=== PATIENT | male | born 1940 | race Caucasian/White ===

== ENCOUNTER → 2017-01-27 | Outpatient (CLI) | payer OTHER ==
[~2017-01-27] VITALS: Ht 167.6 cm; Wt 122.9 kg
[~2017-01-27] MED LIST: ALLOPURINOL 10100 M3 PO; ARANESP60 MCG/1 M IJ; ASPIR 8181 MG PO; BENTYL 10 MG CA10 M1 PO; CERTAVITE SR-A1 EACH PO; HEPARIN SO5000 UNIT2 SUBQ; LACTULOSE10 GM/153 PO; LIPITOR 20 MG T20 M1 PO; NEURONTIN300 MG PO; PREDNISONE 5 MG5 M1 PO
[2017-01-27 07:40] VITALS: BP 122/60
[2017-01-27 07:41] LABS: HEMATOCRIT 41.3 % (42.0-52.0); MCH 30.5 pg (26.0-34.0); MCHC 31.4 g/dL (28.0-37.0); MCV 97.3 fL (80.0-100.0); RBC 4.25 mil/uL (4.50-6.00); RDW 16.7 % (10.5-14.5); WBC 6.8 thou/uL (4.0-11.0)
[2017-01-27 07:56] LABS: APTT 22.2 Seconds (24.5-32.8); PROTIME 10.1 Seconds (9.3-11.4)
== END ==
LOC: SPEC 06:33
PROVIDERS: Radiology Diagnostic Radiology
DX: I12.0 Hypertensive chronic kidney disease with stage 5 chronic kidney disease or end stage renal disease (principal); N18.6 End stage renal disease; Z99.2 Dependence on renal dialysis; I48.91 Unspecified atrial fibrillation; D64.9 Anemia, unspecified; J44.9 Chronic obstructive pulmonary disease, unspecified; K21.9 Gastro-esophageal reflux disease without esophagitis; G47.30 Sleep apnea, unspecified; E11.22 Type 2 diabetes mellitus with diabetic chronic kidney disease

== ENCOUNTER 2017-03-09 16:51 | Inpatient (IN) | payer OTHER ==
[2017-03-09] VITALS (9 sets, daily range): BP systolic 67–102; BP diastolic 25–90
[~2017-03-09] VITALS: Ht 167.6 cm; Wt 115.4 kg
--- NOTE | ~2017-03-09 | HC ---
[facility] [place] [address] [place] [address] CONSULTATION Name: JEFFERY HERNANDEZ Room #: 246-P [facility] IN [facility]#: [id number] Admission: 03/09/17 Attend Phys: Junior Gusman MD Discharge: Date of : 39 Report #: [id number] THIS REPORT FOR: //name// CC: Dre Cannon HISTORY OF PRESENT ILLNESS: The patient is a 76-year-old white male who was brought to the Emergency Room with progressive dyspnea. He has been admitted for pneumonia. A pulmonary consultation was requested. The patient has multiple medical problems including end-stage renal disease undergoing hemodialysis. In 2008, he has had a renal transplantation, which subsequently failed. 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 The patient is a very poor historian. Not able to obtain much history. He does not know why he is here. According to the ER notes, EMS was summoned to the dialysis center yesterday with patient's complaint of dyspnea, hypoxia with a saturation of 86% on 3 liters of O2. Chest x-ray on admission revealed left sided effusion, small lung with mild infiltrates. PAST MEDICAL HISTORY: Is remarkable for end-stage renal disease, status post renal transplantation in 2008, it has failed, now back on hemodialysis, his AV fistula apparently has clotted off on both upper extremities, permanent atrial fibrillation, anemia, COPD, history of sleep apnea, gastroesophageal reflux disease. He has chronic hypoxic respiratory failure on 3 liters of O2 at baseline. PAST SURGICAL HISTORY: As mentioned above. ALLERGIES: ACETAMINOPHEN, DIAZEPAM, PENICILLIN, IODINE, PROPOXYPHENE, reactions unspecified. MEDICATIONS: List reviewed from [facility]. He is on DuoNebs q.i.d. FAMILY HISTORY: Noncontributory. SOCIAL HISTORY: The patient has smoked, but quit in the recent past. He resides at a penitentiary currently. REVIEW OF SYSTEMS: As mentioned above, otherwise 10-point system review negative. PHYSICAL EXAMINATION: GENERAL: He is awake, alert, in no apparent distress. VITAL SIGNS: Temperature is 98 degrees Fahrenheit, pulse is 85, respiratory [facility] [address] [place] [address] CONSULTATION Name: JEFFERY HERNANDEZ Room #: 246-P [facility] IN [facility]#: [id number] Admission: 03/09/17 Attend Phys: Junior Gusman MD Discharge: Date of : 39 Report #: [id number] rate is 22, blood pressure has been variable, perhaps not accurate. Systolic blood pressure has been ____ 86 ____ 66 mmHg systolic, saturation 100%. HEENT: Normocephalic, atraumatic. NECK: Supple, without lymphadenopathy or thyromegaly. CHEST: Breath sounds are decreased due to poor effort. Few scattered crackles. No wheezes. CARDIOVASCULAR: Heart sounds are distant. No obvious murmurs or gallop. Pulses are 2+/4+ bilaterally. ABDOMEN: Obese, soft, nontender, no organomegaly or masses felt. GENITOURINARY: Deferred. RECTAL: Deferred. EXTREMITIES: No cyanosis, clubbing or edema. LABORATORY DATA: Chest x-ray shows small lung volumes, small left-sided pleural effusion, possible infiltrates and atelectasis. Sodium 134, potassium 3.8, chloride 101, CO2 is 24, BUN is 6, creatinine is 2.1. WBC 4900, hemoglobin is 10.8. No significant bandemia. Troponin 0.21. INR is 3.0. IMPRESSION: 1. Dyspnea and hypoxia in this 76-year-old -Prydeinig male with multiple medical problems including end-stage renal disease. Chest x-ray shows possible left-sided infiltrates. I think it is reasonable to presume the patient may have pneumonia overall. Possible aspiration and pneumonia is considered. 2. Chronic obstructive pulmonary disease, severity unknown with mild exacerbation. 3. Acute on chronic hypoxic respiratory failure. 4. End-stage renal disease with prior renal transplant, which has failed, now on hemodialysis, 2 clotted AV fistulas on both upper extremities. He has a temporary dialysis catheter in his left femoral groin. 5. Hypotension. Despite a borderline hypotension, clinically is asymptomatic. We will defer to renal service to manage his hemodynamics as patient may have chronically low blood pressure. 6. Permanent atrial fibrillation on chronic anticoagulation. 7. Decubitus ulcer nonhealing. 8. Elevated troponin, probably related to myocardial stress demand due to sepsis. RECOMMENDATION: Agree with broad spectrum antibiotics to cover for possible aspiration pneumonia. Given the patient resides at a facility, we should consider nosocomial infectious processes. Therefore, agree with vancomycin, we will switch to Zosyn instead of Levaquin. We will continue bronchodilators for now. He does not have any obvious wheezing, we will hold off on corticosteroids. We will defer fluid management to renal service. I will also defer hemodynamic variability to renal service. The patient is overall stable from pulmonary critical care standpoint. We will [facility] [address] [place] [address] CONSULTATION Name: JEFFERY HERNANDEZ Room #: 246-P ADM IN M.R.#: [id number] Admission: 03/09/17 Attend Phys: Junior Gusman MD Discharge: Date of : 39 Report #: [id number] transfer to telemetry if okay will all consultants. Thank you for this consultation. <ELECTRONICALLY SIGNED> By: Faisal Cruz MD 03/15/17 1125 [id number] [id number] Faisal Cruz MD /nt
--- NOTE | ~2017-03-09 | HC ---
[facility] [place] [address] [place] [address] CONSULTATION Name: JEFFERY HERNANDEZ Room #: 246-P [facility] IN ..#: [id number] Admission: 03/09/17 Attend Phys: Junior Gusman MD Discharge: Date of : 39 Report #: [id number] THIS REPORT FOR: //name// CC: Dre Cannon REASON FOR CONSULTATION: End-stage renal disease. HISTORY OF PRESENT ILLNESS: This 76-year-old gentleman is seen in intensive care unit. He is a very poor historian and history is currently available. The patient apparently has longstanding end-stage renal disease, headache, renal transplant in 2008, which he had for some period of time and has not been back on dialysis. He has had sacral wound. He had septic episode, has not been able to walk for year according to him, have been dialyzing again in [place], has had hypotension, on midodrine and developed shortness of breath at dialysis today. He was eventually brought to the Emergency Room, where he was found to be somewhat hypotensive. Chest x-ray did not show congestive heart failure. He has been given fluid. Cultures were obtained. He has been given antibiotics. He is seen in ICU. PAST MEDICAL HISTORY: He has diabetes, end-stage renal disease, history of prior hypertension, now hypotension, the atrial fibrillation as mentioned, he has been on prednisone for sometime and he really cannot tell me why. HOME MEDICATIONS: Listed as prednisone 7.5 mg daily, insulin, midodrine 10 mg t.i.d. He had be on ampicillin recently, allopurinol 100 mg, lactulose. He is getting EPO after dialysis and a . He also has some past history of MRSA. REVIEW OF SYSTEMS: GENERAL: He has not been well. He has not been walking, has been weak, has been eating some. EYES: His vision is okay. ENT: Hearing okay. Swallowing okay. Denies mouth ulcers. ENDOCRINE: Positive for the diabetes. RESPIRATORY: He has been feeling somewhat short winded and apparently had some hypoxemia earlier. CARDIAC: Denies chest pain, angina or myocardial infarction, has had the atrial fibrillation. GASTROINTESTINAL: Apparently still eating. GENITOURINARY: Does not make enough urine. SKELETAL: He has had swelling in his legs for sometime and a wound on his buttocks. ALLERGIES: REPORTEDLY TO DIAZEPAM, PENICILLIN, PROPOXYPHENE. ADDENDUM: He also has a diagnosis listed as sleep apnea. [facility] [address] [place] [address] CONSULTATION Name: JEFFERY HERNANDEZ Room #: 246-P [facility]#: [id number] Admission: 03/09/17 Attend Phys: Junior Gusman MD Discharge: Date of : 39 Report #: [id number] SOCIAL HISTORY: Denies cigarettes or alcohol or drugs. FAMILY HISTORY: Noncontributory. PHYSICAL EXAMINATION: GENERAL: This is a relatively comfortable appearing patient seen in ICU. SKIN: He has several excoriations and buttock wounds. SKELETAL: He is very obese. HEENT: Extraocular movements are full. Vision intact. No scleral icterus. Hearing intact. Mucous membranes moist. NECK: Supple. CHEST: Shows diminished breath sounds at the bases. HEART: Slightly irregular. ABDOMEN: Soft and nontender. EXTREMITIES: There is a tunneled dialysis catheter in left groin and the patient is rather obese legs have chronic 3+ edema. LABORATORY DATA: Sodium 132, potassium 5, chloride 100, bicarbonate , BUN 5, creatinine only 1.7, lactic acid 2.9 and troponin I 0.23. ASSESSMENT AND PLAN: 1. End-stage renal disease, apparently a failed transplant, has been on steroids. He is hypotensive. We will cover him for stress dose steroids in the meantime. We will give him IV fluids for his blood pressure. 2. End-stage renal disease, dialysis dependent. 3. Possible sepsis, antibiotics and cultures appropriate. 4. Possible steroid dependent, we will covered with IV steroids. 5. Diabetes mellitus. 6. Buttocks wound. 7. Paraparesis by history, lower extremity swelling. <ELECTRONICALLY SIGNED> By: Sidney Sullivan MD 03/14/17 1048 [id number] 0623 Sidney Sullivan MD /nt
--- NOTE | ~2017-03-09 | EKG ---
[address] [address] ELECTROCARDIOGRAM REPORT Name: MAURA HERNANDEZCHARLIE Patino Room #: 246-P [facility] IN M.R.#: [id number] Admission: 03/09/17 Attend Phys: Junior Gusman MD Discharge: Date of : 39 Report #: [id number] THIS REPORT FOR: //name// [facility] ED Test Date: 2017-03-09 Test Time: 17:06:50 Pat Name: JEFFERY HERNANDEZ Department: Room: 246 Gender: M Bank Teller: Zayda DAS : 1940 Requested By: Gregorio Nichole Order Number: [id number] MD: Ladarius Martell Measurements Intervals [place] Rate: 94 P: 11 ID: [id number] QRS: 55 QRSD: 98 T: QT: 341 QTc: 427 Interpretive Statements Atrial fibrillation vs atrial tachycardia Low voltage, precordial leads Abnormal R-wave progression, early transition Nonspecific T abnormalities, diffuse leads Compared to ECG 07/12/1995 09:01:00 Low QRS voltage now present Sinus rhythm no longer present Sinus arrhythmia no longer present Poor R-wave progression no longer present T-wave abnormality still present Electronically Signed On 03-14-2017 8:07:20 CDT by Ladarius Martell [email or web address] <ELECTRONICALLY SIGNED> By: Ladarius Martell MD 03/14/17 0807 05 05 Ladarius Martell MD /EPI
--- NOTE | ~2017-03-09 | 2DMMODE ---
[facility] [place] [address] 2 D/M-MODE ECHOCARDIOGRAM Name: DAVIDJEFFERY G Room #: 246-P [facility] IN .R.#: [id number] Admission: 03/09/17 Attend Phys: Ham Cardoza Discharge: Date of : 38 Date of Service: 03/10/17 1207 Report #: [id number] THIS REPORT FOR: //name// APPROVED REPORT Study performed: 03/10/2017 08:40:05 EXAM: Comprehensive 2D, Doppler, and color-flow Echocardiogram Patient Location: ICU Room #: 246 Blood Pressure: 78/64 mmHg HR: 88 bpm Other Information Study Quality: Fair Indications COPD Diabetes Dyspnea 2D Dimensions RVDd: 50.73 mm LVEF(%): 62.11 (>50%) IVSd: 16.18 (7-11mm) LVOT Diam: 21.93 (18-24mm) LVDd: 36.75 mm PWd: 13.52 (7-11mm) Ascending Ao: 29.97 (22-36mm) LVDs: 24.71 (25-40mm) Aortic Root: 35.73 mm IVC: 28.00 mm Lopez's LVEF: 62.11 % Volumes Left Atrial Volume (Systole) Single Plane 4CH: 36.54 mL Aortic Valve AoV Peak Jesus.: 1.83 m/s AO Peak Gr.: 13.36 mmHg LVOT Max P.25 mmHg LVOT Max V: 0.90 m/s MOE Vmax: 1.86 cm2 Mitral Valve E/A Ratio: 0.9 [facility] [address] [place] [address] 2 D/M-MODE ECHOCARDIOGRAM Name: JEFFERY HERNANDEZ Room #: 246-P [facility] IN ..#: [id number] Admission: 03/09/17 Attend Phys: Ham Cardoza Discharge: Date of : 38 Date of Service: 03/10/17 1207 Report #: [id number] MV Decel. Time: 207.88 ms MV E Max Jesus.: 0.67 m/s MV A Jesus.: 0.73 m/s MV PHT: 60.29 ms IVRT: 106.11 ms Pulmonary Valve PV Peak Jesus.: 0.83 m/s PV Peak Gr.: 2.74 mmHg Pulmonary Vein P Vein S: 45.4 m/s P Vein A: 22.91 m/s P Vein D: 25.7 m/s P Vein A Dur.: 87.7 msec Tricuspid Valve TR Peak Jesus.: 4.29 m/s RAP Estimate: 15.00 mmHg TR Peak Gr.: 73.76 mmHg Left Ventricle The left ventricle is normal size. Mild concentric left ventricular hypertrophy. The left ventricular systolic function is normal. The left ventricular ejection fraction is within the normal range. LVEF is 60%. Grade I - abnormal relaxation pattern. Right Ventricle Right ventricle is dilated. Right ventricle is hypokinetic. Atria The left atrium size is normal. Right atrium is dilated. Aortic Valve The aortic valve is normal in structure. No aortic regurgitation is present. There is no aortic valvular stenosis. Mitral Valve The mitral valve is normal in structure. There is no mitral valve regurgitation noted. No evidence of mitral valve stenosis. Tricuspid Valve The tricuspid valve is normal in structure. There is moderate tricuspid regurgitation. The right atrial pressure is estimated at 15 mmHg. There is severe pulmonary hypertension. Estimated PAP was 89 mmHg. Pulmonic Valve The pulmonary valve is normal in structure. There is no pulmonic [place] [id number] 2 D/M-MODE ECHOCARDIOGRAM Name: HERNANDEZJEFFERY Room #: 246-P [facility] IN ..#: [id number] Admission: 03/09/17 Attend Phys: Ham Cardoza Discharge: Date of : 38 Date of Service: 03/10/17 1207 Report #: [id number] valvular regurgitation. Great Vessels The aortic root is normal in size. The inferior vena cava is dilated with no inspiratory collapse. Pericardium There is no pericardial effusion. <Conclusion> The left ventricle is normal size. Mild concentric left ventricular hypertrophy. LVEF is 60%. Right ventricle is dilated. Right ventricle is hypokinetic. Right atrium is dilated. The aortic valve is normal in structure. The mitral valve is normal in structure. The tricuspid valve is normal in structure. There is moderate tricuspid regurgitation. The right atrial pressure is estimated at 15 mmHg. There is severe pulmonary hypertension. Estimated PAP was 89 mmHg. The pulmonary valve is normal in structure. <ELECTRONICALLY SIGNED> By: Bob Nevarez MD 03/10/17 120 06 06 Bob Nevarez MD /INF
[2017-03-09 17:38] LABS: CALCIUM 9.1 mg/dL (8.5-10.1); CREATININE 1.7 mg/dL (0.7-1.3)
[2017-03-09 17:42] LABS: HEMATOCRIT 39.7 % (42.0-52.0); HEMOGLOBIN 12.2 gm/dL (14.0-18.0); MCH 31.4 pg (26.0-34.0); MCHC 30.7 g/dL (28.0-37.0); MCV 102.1 fL (80.0-100.0); PLATELET COUNT 233 thou/uL (150-400); RBC 3.89 mil/uL (4.50-6.00); RDW 20.6 % (10.5-14.5); WBC 8.5 thou/uL (4.0-11.0)
[2017-03-09 17:45] LABS: PROTIME 30.8 Seconds (9.3-11.4)
[2017-03-09 17:48] LABS: MANUAL DIFF YES
[2017-03-09 18:16] LABS: TOTAL CELL COUNT 100
[2017-03-09 18:17] LABS: ANISOCYTOSIS 2+; MICROCYTES 1+; POLYCHROMASIA SLIGHT; SCHISTOCYTES FEW
[2017-03-09] MEDS ORDERED: MAGOX 400400 MG PO (21:06)
[2017-03-09] MEDS ORDERED: COLACE100 MG PO (21:06)
[2017-03-09] MEDS ORDERED: MIDODRINE HCL 55 M1 PO (21:06)
[2017-03-09] MEDS ORDERED: MICONAZOLE5 GM TOP (21:06)
[2017-03-09] MEDS ORDERED: PROTONIX40 M4 (21:07)
[2017-03-09] MEDS ORDERED: NOVOLOG100 UNIT/1 SUBQ (21:08)
[2017-03-09] MEDS ORDERED: GUAIFENESIN ER600 MG (21:08)
[2017-03-09] MEDS ORDERED: SEROQUEL 25 MG25 M1 (21:09)
[2017-03-09] MEDS ORDERED: LEVEMIR100 UNIT/1 SUBQ (21:09)
[2017-03-09] MEDS ORDERED: DETROL2 M1 PO (21:10)
[2017-03-09] MEDS ORDERED: DUONEB 2.5-0.5 M3 ML INH (21:10)
[2017-03-09] MEDS ORDERED: BOUDREAUXS57 GM TOP (21:11)
[2017-03-10] VITALS (50 sets, daily range): BP systolic 41–121; BP diastolic 24–87
[2017-03-10 05:32] LABS: HEMATOCRIT 34.8 % (42.0-52.0); HEMOGLOBIN 10.8 gm/dL (14.0-18.0); MCH 31.4 pg (26.0-34.0); MCHC 31.1 g/dL (28.0-37.0); MCV 101.1 fL (80.0-100.0); RBC 3.44 mil/uL (4.50-6.00); RDW 20.4 % (10.5-14.5); WBC 4.9 thou/uL (4.0-11.0)
[2017-03-10 05:48] LABS: ALBUMIN 2.5 g/dL (3.4-5.0); CALCIUM 8.9 mg/dL (8.5-10.1); CREATININE 2.1 mg/dL (0.7-1.3); PHOSPHORUS 2.1 mg/dL (2.5-4.9)
[2017-03-10 06:04] LABS: POTASSIUM 3.8 mmol/L (3.5-5.1)
[2017-03-11] VITALS (62 sets, daily range): BP systolic 63–113; BP diastolic 24–81
[2017-03-11 05:53] LABS: HEMATOCRIT 36.7 % (42.0-52.0); HEMOGLOBIN 11.3 gm/dL (14.0-18.0); MCH 31.7 pg (26.0-34.0); MCHC 30.9 g/dL (28.0-37.0); MCV 102.7 fL (80.0-100.0); RBC 3.58 mil/uL (4.50-6.00); WBC 7.3 thou/uL (4.0-11.0)
[2017-03-11 05:57] LABS: INR 3.4; PROTIME 34.8 Seconds (9.3-11.4)
[2017-03-11 06:03] LABS: ALBUMIN 2.7 g/dL (3.4-5.0); CREATININE 2.7 mg/dL (0.7-1.3); POTASSIUM 4.3 mmol/L (3.5-5.1)
[2017-03-12] VITALS (73 sets, daily range): BP systolic 63–112; BP diastolic 26–78
[2017-03-12 06:44] LABS: HEMATOCRIT 35.2 % (42.0-52.0); HEMOGLOBIN 11.2 gm/dL (14.0-18.0); MCH 31.9 pg (26.0-34.0); MCHC 31.7 g/dL (28.0-37.0); MCV 100.6 fL (80.0-100.0); RBC 3.5 mil/uL (4.50-6.00); WBC 7.3 thou/uL (4.0-11.0)
[2017-03-12 07:01] LABS: CALCIUM 8.9 mg/dL (8.5-10.1); CREATININE 2.2 mg/dL (0.7-1.3); POTASSIUM 4.1 mmol/L (3.5-5.1)
[2017-03-12 07:04] LABS: INR 2.8; PROTIME 28.8 Seconds (9.3-11.4)
[2017-03-13] VITALS (45 sets, daily range): BP systolic 73–112; BP diastolic 28–62
[2017-03-13 04:19] LABS: HEMATOCRIT 34.1 % (42.0-52.0); HEMOGLOBIN 10.7 gm/dL (14.0-18.0); MCH 31.6 pg (26.0-34.0); MCHC 31.3 g/dL (28.0-37.0); RBC 3.37 mil/uL (4.50-6.00); WBC 5.3 thou/uL (4.0-11.0)
[2017-03-13 04:30] LABS: INR 2.8; PROTIME 28.9 Seconds (9.3-11.4)
[2017-03-13 04:35] LABS: CALCIUM 8.9 mg/dL (8.5-10.1); CREATININE 2.8 mg/dL (0.7-1.3); POTASSIUM 4.2 mmol/L (3.5-5.1)
[2017-03-14] VITALS (75 sets, daily range): BP systolic 68–112; BP diastolic 22–68
[2017-03-14 04:46] LABS: INR 2.6; PROTIME 26.7 Seconds (9.3-11.4)
[2017-03-15] VITALS (34 sets, daily range): BP systolic 69–124; BP diastolic 25–99
[2017-03-15 04:41] LABS: INR 2.5; PROTIME 25.3 Seconds (9.3-11.4)
[2017-03-16 00:03] VITALS: BP 88/50
[2017-03-16 06:39] VITALS: BP 87/54
[2017-03-16 07:22] VITALS: BP 93/57
[2017-03-16 17:17] VITALS: BP 89/53
[2017-03-16 20:28] VITALS: BP 78/57
[2017-03-17 02:52] VITALS: BP 89/50
[2017-03-17 07:39] VITALS: BP 77/44
[2017-03-17 11:52] VITALS: BP 80/40
[2017-03-17 15:44] VITALS: BP 79/39
[2017-03-17] MEDS ORDERED: HYDROCODONE-AP1 EAC6 PO (15:50)
== END 2017-03-17 18:01 | disposition hospice, home (50) | DRG 871 ==
LOC: ER 16:51 → ICU 20:18 → EROBS 20:18 → ICU 21:40 → 2N 03-15 17:40
PROVIDERS: Emergency Medicine; Hospitalist; Internal Medicine Nephrology; Internal Medicine Pulmonary Disease
PROC: 5A1D60Z (ICD-10-PCS; principal; 2017-03-11)
DX: A41.9 Sepsis, unspecified organism (principal); J18.9 Pneumonia, unspecified organism; J96.21 Acute and chronic respiratory failure with hypoxia; N18.6 End stage renal disease; G93.40 Encephalopathy, unspecified; I21.4 Non-ST elevation (NSTEMI) myocardial infarction; J44.1 Chronic obstructive pulmonary disease with (acute) exacerbation; J44.0 Chronic obstructive pulmonary disease with (acute) lower respiratory infection; Z94.0 Kidney transplant status; Z79.01 Long term (current) use of anticoagulants; E11.22 Type 2 diabetes mellitus with diabetic chronic kidney disease; M81.0 Age-related osteoporosis without current pathological fracture; K21.9 Gastro-esophageal reflux disease without esophagitis; E11.649 Type 2 diabetes mellitus with hypoglycemia without coma; I95.9 Hypotension, unspecified; I48.2 Chronic atrial fibrillation; G47.33 Obstructive sleep apnea (adult) (pediatric); L89.90 Pressure ulcer of unspecified site, unspecified stage; I27.81 Cor pulmonale (chronic); I27.2 Other secondary pulmonary hypertension; R65.20 Severe sepsis without septic shock; G31.84 Mild cognitive impairment of uncertain or unknown etiology; D53.9 Nutritional anemia, unspecified; Z88.8 Allergy status to other drugs, medicaments and biological substances; Z88.0 Allergy status to penicillin; Z91.041 Radiographic dye allergy status; Z79.82 Long term (current) use of aspirin; Z79.899 Other long term (current) drug therapy; Z99.2 Dependence on renal dialysis
CPT/HCPCS: 10078; 10081; 32100